=== PATIENT | female | born 1985 | race Caucasian/White ===

== ENCOUNTER 2017-11-22 05:16 | Inpatient (IN) | payer OTHER ==
[~2017-11-22] VITALS: Ht 160 cm; Wt 88.5 kg
[2017-11-22] MEDS ORDERED: OXYTOCIN 30U/ 0.9% NaCL 500ML 500 ML IV ONE (05:22)
[2017-11-22] MEDS ORDERED: FENTANYL PF 100 MCG/2ML IVPush PRN (05:30)
[2017-11-22] MEDS ORDERED: FENTANYL PF 100 MCG/2ML IV PRN (05:30)
[2017-11-22] MEDS ORDERED: ONDANSETRON 2MG/ML, 2ML IVPush PRN (05:30)
[2017-11-22 05:31] VITALS: BP 126/82
[2017-11-22] MEDS ORDERED: PREN-3 PO (05:40)
[2017-11-22 05:46] LABS: BASOPHILS # (AUTO) 0.04 x10^3/uL (0-0.1); BASOPHILS % (AUTO) 0 % (0-1); EOSINOPHILS # (AUTO) 0.06 x10^3/uL (0-0.4); EOSINOPHILS % (AUTO) 1 % (1-7); LYMPHOCYTES # (AUTO) 1.89 x10^3/uL (1-3.4); LYMPHOCYTES % (AUTO) 19 % (22-44); MD NO; MEAN CORPUSCULAR HEMOGLOBIN 29.9 pg (27.0-34.8); MEAN CORPUSCULAR HGB CONC 33.2 g/dL (32.4-35.8); MEAN CORPUSCULAR VOLUME 90.1 fL (80-100); MEAN PLATELET VOLUME 8.7 fL (7.4-10.4); MONOCYTES # (AUTO) 0.55 x10^3/uL (0.2-0.8); MONOCYTES % (AUTO) 5 % (2-9); NEUTROPHILS # (AUTO) 7.69 x10^3/uL (1.8-6.8); NEUTROPHILS % (AUTO) 75 % (42-75); PLATELET COUNT 278 x10^3/uL (130-400); RED BLOOD COUNT 3.74 x10^6/uL (3.82-5.3); RED CELL DISTRIBUTION WIDTH 14.3 % (9.6-15.2)
[2017-11-22] MEDS: LACTATED RINGERS 1,000 ML IV SCH ×2 (05:49→11:26)
[2017-11-22] MEDS ORDERED: OXYTOCIN 30U/ 0.9% NaCL 500ML 500 ML IV PRN (05:55)
[2017-11-22] MEDS ORDERED: OXYTOCIN 30U/ 0.9% NaCL 500ML 500 ML ONE ×2 (05:59→18:07)
[2017-11-22] MEDS ORDERED: PENICILLIN GK 5,000,000 UNITS in SODIUM CHLORIDE 0.9% 100 ML IVPB ONE (06:00)
[2017-11-22] MEDS ORDERED: NEWBORN KIT ONE (06:27)
[2017-11-22] MEDS: PENICILLIN GK 2,500,000 UNITS in DEXTROSE 5% 100 ML IVPB SCH ×3 (10:22→18:00)
[2017-11-22] MEDS ORDERED: ONDANSETRON 2MG/ML, 2ML ONE (10:50)
[2017-11-22] MEDS ORDERED: FENTANYL/BUPIV./NS/PF 250 ML EPIDCONT ONE (11:36)
[2017-11-22] MEDS ORDERED: BUPIVACAINE 0.25% ONE (11:36)
[2017-11-22] MEDS ORDERED: FENTANYL/BUPIV./NS/PF 250 ML EPIDCONT SCH (12:00)
[2017-11-22] MEDS ORDERED: LACTATED RINGERS 1,000 ML IVBOLUS PRN (12:00)
[2017-11-22] MEDS ORDERED: LACTATED RINGERS 1,000 ML IV SCH (12:00)
[2017-11-22] MEDS ORDERED: EPHEDRINE 50 MG/ML, 1ML IVPush PRN (12:00)
[2017-11-22] MEDS: D5%-LACTATED RINGERS 1,000 ML IV SCH ×2 (16:02→23:59)
[2017-11-22] MEDS ORDERED: MISOPROSTOL 200 MCG TABLET ONE (16:28)
[2017-11-22] MEDS ORDERED: LIDOCAINE/PF 1%, 30ML ONE (16:29)
[2017-11-22] MEDS ORDERED: ACETAMINOPHEN 500 MG TABLET ONE (17:51)
[2017-11-22] MEDS ORDERED: ACETAMINOPHEN 500 MG TABLET PO STA (17:53)
[2017-11-22] MEDS ORDERED: MISOPROSTOL 200 MCG TABLET PR PRN (18:00)
[2017-11-22] MEDS ORDERED: ACETAMINOPHEN 325 MG TABLET PO PRN (18:00)
[2017-11-22] MEDS ORDERED: OXYcodone/APAP 5/325MG TABLET PO PRN ×2 (18:00)
[2017-11-22] MEDS ORDERED: ACETAMINOPHEN 500 MG TABLET PO ONE ×2 (18:00→18:30)
[2017-11-22] MEDS ORDERED: METHYLERGONOVINE 0.2 MG/ML IM PRN (18:00)
[2017-11-22] MEDS ORDERED: CARBOPROST TROMETHAMINE 250 MCG/ML, 1ML IM PRN (18:00)
[2017-11-22] MEDS ORDERED: ONDANSETRON 2MG/ML, 2ML IV PRN (18:00)
[2017-11-22] MEDS ORDERED: CALCIUM CARBONATE 500 MG TAB.CHEW PO PRN (18:00)
[2017-11-22] MEDS: OXYTOCIN 30U/ 0.9% NaCL 500ML 500 ML IV SCH (18:17)
[2017-11-22 19:40] VITALS: BP 116/71
[2017-11-22] MEDS: DOCUSATE 100 MG CAPSULE PO PRN (22:36)
[2017-11-22] MEDS: IBUPROFEN 600 MG TABLET PO PRN (22:36)
[2017-11-23 00:15] VITALS: BP 100/65
[2017-11-23 01:59] LABS: BASOPHILS # (AUTO) 0.03 x10^3/uL (0-0.1); BASOPHILS % (AUTO) 0 % (0-1); EOSINOPHILS # (AUTO) 0.06 x10^3/uL (0-0.4); EOSINOPHILS % (AUTO) 1 % (1-7); LYMPHOCYTES # (AUTO) 1.53 x10^3/uL (1-3.4); LYMPHOCYTES % (AUTO) 13 % (22-44); MD NO; MEAN CORPUSCULAR HGB CONC 32.8 g/dL (32.4-35.8); MEAN CORPUSCULAR VOLUME 88.4 fL (80-100); MEAN PLATELET VOLUME 8.6 fL (7.4-10.4); MONOCYTES # (AUTO) 0.44 x10^3/uL (0.2-0.8); MONOCYTES % (AUTO) 4 % (2-9); NEUTROPHILS # (AUTO) 9.47 x10^3/uL (1.8-6.8); NEUTROPHILS % (AUTO) 82 % (42-75); PLATELET COUNT 245 x10^3/uL (130-400); RED BLOOD COUNT 3.57 x10^6/uL (3.82-5.3); RED CELL DISTRIBUTION WIDTH 14.4 % (9.6-15.2)
[2017-11-23] MEDS: OXYTOCIN 30U/ 0.9% NaCL 500ML 500 ML IV SCH (03:45)
[2017-11-23] MEDS ORDERED: RHOGAM FROM BLOOD BANK 1 NOTE EA IM/IV ONE (04:30)
[2017-11-23] MEDS: IBUPROFEN 600 MG TABLET PO PRN ×3 (04:32→20:19)
[2017-11-23 04:35] VITALS: BP 99/63
[2017-11-23] MEDS: D5%-LACTATED RINGERS 1,000 ML IV SCH (07:59)
[2017-11-23 08:25] VITALS: BP 106/65
[2017-11-23] MEDS: ACETAMINOPHEN 325 MG TABLET PO PRN ×2 (08:45→16:52)
[2017-11-23] MEDS: DOCUSATE 100 MG CAPSULE PO PRN ×2 (08:45→20:19)
[2017-11-23] MEDS: PRENATAL VIT/IRON/FA 1 EACH TABLET PO SCH (08:46)
[2017-11-23 12:41] VITALS: BP 113/69
[2017-11-23 18:18] VITALS: BP 102/68
[2017-11-23 20:25] VITALS: BP 126/77
[2017-11-24] MEDS: IBUPROFEN 600 MG TABLET PO PRN ×2 (02:18→08:19)
[2017-11-24 07:30] VITALS: BP 107/64
[2017-11-24] MEDS: PRENATAL VIT/IRON/FA 1 EACH TABLET PO SCH (08:19)
[2017-11-24] MEDS: DOCUSATE 100 MG CAPSULE PO PRN (08:19)
[2017-11-24] MEDS ORDERED: IBUP-1222 PO (09:04)
== END 2017-11-24 10:52 | disposition home or self-care (01) | DRG 775 ==
LOC: LDIP 05:16 → 2NW 19:27
PROVIDERS: ADMIT Obstetrics & Gynecology; ATTEND Obstetrics & Gynecology
PROC: 10E0XZZ Delivery of Products of Conception, External Approach (ICD-10-PCS; principal; 2017-11-22)
PROC: 0KQM0ZZ Repair Perineum Muscle, Open Approach (ICD-10-PCS; 2017-11-22)
PROC: 3E033VJ Introduction of Other Hormone into Peripheral Vein, Percutaneous Approach (ICD-10-PCS; 2017-11-22)
PROC: 10907ZC Drainage of Amniotic Fluid, Therapeutic from Products of Conception, Via Natural or Artificial Opening (ICD-10-PCS; 2017-11-22)
PROC: 3E0R3BZ Introduction of Anesthetic Agent into Spinal Canal, Percutaneous Approach (ICD-10-PCS; 2017-11-22)
PROC: 00HU33Z Insertion of Infusion Device into Spinal Canal, Percutaneous Approach (ICD-10-PCS; 2017-11-22)
PROC: 3E0234Z Introduction of Serum, Toxoid and Vaccine into Muscle, Percutaneous Approach (ICD-10-PCS; 2017-11-22)
DX: O99.824 Streptococcus B carrier state complicating childbirth (principal); Z37.0 Single live birth; O70.1 Second degree perineal laceration during delivery; Z3A.39 39 weeks gestation of pregnancy; O26.893 Other specified pregnancy related conditions, third trimester; Z67.91 Unspecified blood type, Rh negative
CPT/HCPCS: 36415; 82803; 85025; 85461; 86850; 86900; J2405; J2540; J2790; J2590; J3010; J7120; J7121

== ENCOUNTER → 2020-05-22 | Outpatient (CLI) | payer OTHER ==
[~2020-05-22] MED LIST: IBUP-1222 PO; PREN-3 PO
== END | disposition home or self-care (01) ==
LOC: STAR 12:19
PROVIDERS: ATTEND Obstetrics & Gynecology
DX: Z20.828 Contact with and (suspected) exposure to other viral communicable diseases (principal)
CPT/HCPCS: 87635